=== PATIENT | female | born 1955 | race Caucasian/White ===

== ENCOUNTER 2018-03-20 09:04 | Day surgery (SDC) | payer BC ==
[~2018-03-20 09:04] MED LIST: CYCLOPENTOLATE 1% 2 ML OPH OPER; LACTATED RINGER'S 1,000 ML IV*; MOXIFLOXACIN 0.5% 3 ML OPH OPER; NACL 0.9% 3 ML SYG IV; NEPAFENAC 0.1% 3 ML OPH OPER; PHENYLephrine 2.5% 5 ML OPH OPER; TROPICAMIDE 1% 3 ML OPH OPER
[2018-03-20] MEDS ORDERED: MOXIFLOXACIN 0.5% 3 ML OPH OPER (11:00)
[2018-03-20] MEDS ORDERED: TROPICAMIDE 1% 3 ML OPH OPER (11:00)
[2018-03-20] MEDS ORDERED: PHENYLephrine 2.5% 5 ML OPH OPER (11:00)
[2018-03-20] MEDS ORDERED: CYCLOPENTOLATE 1% 2 ML OPH OPER (11:00)
[2018-03-20] MEDS: PHENYLephrine 2.5% 15 ML OPH OPER (11:20)
[2018-03-20] MEDS: CYCLOPENTOLATE 1% 2 ML OPH OPER (11:21)
[2018-03-20] MEDS: MOXIFLOXACIN 0.5% 3 ML OPH OPER (11:22)
[2018-03-20] MEDS: TROPICAMIDE 1% 3 ML OPH OPER (11:22)
[2018-03-20] MEDS: DICLOFENAC 0.1% 2.5 ML OPH OPER (11:22)
[2018-03-20] MEDS ORDERED: PHENYLephrine 2.5% 15 ML OPH OPER (11:30)
[2018-03-20] MEDS: LIDOCAINE 1% (MPF) 10 ML INJ INJ (12:10)
[2018-03-20] MEDS: TETRACAINE 0.5% 4 ML OPH LEFT EYE (12:10)
[2018-03-20] MEDS ORDERED: FENTAnyl 50 MCG/ML VIAL (12:20)
[2018-03-20] MEDS ORDERED: MIDAZOLAM 1 MG/ML 2 ML INJ (12:21)
[2018-03-20] MEDS ORDERED: OXYCODONE/ACETAMINOPHEN (5/325) TAB PO (12:30)
[2018-03-20] MEDS ORDERED: MEPERIDINE 25 MG INJ IV (12:30)
[2018-03-20] MEDS ORDERED: DIPHENHYDRAMINE 50 MG INJ IV (12:30)
[2018-03-20] MEDS ORDERED: HYDROmorphONE 1 MG/5 ML IV SYRINGE IV (12:30)
[2018-03-20] MEDS ORDERED: ONDANSETRON 4 MG INJ IV (12:30)
[2018-03-20] MEDS ORDERED: FENTAnyl 50 MCG/ML VIAL IV (12:30)
[2018-03-20] MEDS ORDERED: PROCHLORPERAZINE 10 MG INJ IV (12:30)
[2018-03-20] MEDS ORDERED: LABETALOL HCL 20MG INJ IV (12:30)
[2018-03-20] MEDS ORDERED: hydrALAzine 20 MG INJ IV (12:30)
[2018-03-20] MEDS ORDERED: TOBRAMYCIN/DEXAMETH 3.5 GM OPH OINT (12:42)
[2018-03-20] MEDS ORDERED: TETRACAINE 0.5% 4 ML OPH (12:42)
[2018-03-20] MEDS ORDERED: EPINEPHrine 1 MG INJ (12:42)
[2018-03-20] MEDS ORDERED: LIDOCAINE 1% (MPF) 10 ML INJ (12:42)
[2018-03-20] MEDS: TOBRAMYCIN/DEXAMETH 3.5 GM OPH OINT OPER (13:02)
== END 2018-03-20 14:10 | disposition home or self-care (01) ==
LOC: SDS 09:04
DX: H25.12 Age-related nuclear cataract, left eye (principal); H25.9 Unspecified age-related cataract
CPT/HCPCS: 66984